=== PATIENT | female | born 1965 | race Caucasian/White ===

== ENCOUNTER 2016-12-22 04:38 | Emergency (ER) | payer BC ==
[~2016-12-22] VITALS: Ht 167.6 cm; Wt 77.1 kg
[2016-12-22 04:47] VITALS: BP 174/92
[2016-12-22] MEDS ORDERED: HYDR-2758 PO (05:05)
--- NOTE | 2016-12-22 05:07 | PHYS DOC ---
Past Medical History Past Medical History: Depression, Hypertension Additional Past Medical Histor: ADHD Past Surgical History: Hysterectomy, Tonsillectomy Additional Past Surgical Histo: ANKLE REDUCTIN Alcohol Use: Occasionally Drug Use: None Adult General Chief Complaint Chief Complaint: ANKLE PROBLEM HPI HPI 51-year-old female who injured her left ankle about 2 hours prior to arrival. She has swelling of the ankle joint with pain that is mild intermittent worse with walking and without alleviating factors. Review of systems is negative for knee pain or hip pain. Negative for chest pain shortness of breath. All other review of systems is negative unless otherwise noted in history of present illness. ED course: 51-year-old female presenting with left ankle pain after injuring her left ankle. X-rays obtained which showed no obvious fracture or dislocation. Significant soft tissue swelling present. Neurovascularly intact. 2 second cap refill with normal sensation in the foot. Ankle is wrapped in the emergency room and crutches provided to follow-up with her doctor next 2-3 days for repeat ankle examination. Review of Systems Review of Systems SEE ABOVE. Allergies Allergies Allergies Coded Allergies Type Severity Reaction Last Updated Verified ciprofloxacin Allergy Intermediate 12/22/16 Yes Physical Exam Physical Exam SEE ABOVE Constitutional: Well developed, well nourished, no acute distress, non-toxic appearance. [] HENT: Normocephalic, atraumatic, bilateral external ears normal, oropharynx moist, no oral exudates, nose normal. [] Eyes: PERRLA, EOMI, conjunctiva normal, no discharge. [] Neck: Normal range of motion, no tenderness, supple, no stridor. [] Cardiovascular:Heart rate regular rhythm, no murmur [] Lungs & Thorax: Bilateral breath sounds clear to auscultation [] Abdomen: Bowel sounds normal, soft, no tenderness, no masses, no pulsatile masses. [] Skin: Warm, dry, no erythema, no rash. [] Back: No tenderness, no CVA tenderness. [] Extremities: Soft tissue swelling the left lateral malleolus with tenderness palpation. No abrasions ecchymosis or laceration. Neurovascularly intact. Neurologic: Alert and oriented X 3, normal motor function, normal sensory function, no focal deficits noted. [] Psychologic: Affect normal, judgement normal, mood normal. [] Current Patient Data Vital Signs Vital Signs Date Time Temp Pulse Resp B/P (MAP) Pulse Ox O2 Delivery O2 Flow Rate FiO2 12/22/16 04:47 98.2 93 16 174/92 (119) 95 Room Air 98.2 EKG EKG [] Radiology/Procedures Radiology/Procedures [] Course & Med Decision Making Course & Med Decision Making Pertinent Labs and Imaging studies reviewed. (See chart for details) [] Dragon Disclaimer Dragon Disclaimer This electronic medical record was generated, in whole or in part, using a voice recognition dictation system. Departure Departure Impression: Primary Impression: Ankle sprain Disposition: HOME, SELF-CARE Condition: STABLE Referrals: JOSEFINA WILSON MD (PCP) Patient Instructions: Ankle Sprain Additional Instructions: Thank you for allowing us to participate in your care today. Followup with your primary care physician in 3 days if your symptoms do not improve. Call your Primary Doctor tomorrow and inform them of your visit today. If you do not have a primary care provider you can ask for a list of our primary care providers. Return to the emergency department you have any new or concerning findings. This should be evaluated by the primary care physician and any necessary consulting services for continued management within a few days after discharge. Return to emergency room if you have any new or concerning symptoms including but not limited to fever, chills, nausea, vomiting, intractable pain, any new rashes, chest pain, shortness of air, uncontrolled bleeding, difficulty breathing, and/or vision loss. You may have been prescribed medication that can change in your level of thinking and ability to operate machinery. These medications include hydrocodone and Ativan. Also, Benadryl has been known to do this as well. Be sure to check with your pharmacist and ask if the medications you've prescribed can affect your level of consciousness. I recommend not operating heavy machinery or driving while on medication such as these. Scripts Hydrocodone Bit/Acetaminophen (HYDROCODONE-APAP 5-325 ) 1 Each Tablet 1 TAB PO PRN Q6HRS Y for PAIN, #15 TAB 0 Refills Be careful as this medication may cause you to be drowsy or tired. Do not drive on this medication. Prov: RENE ORDONEZ MD 12/22/16 RENE ORDONEZ MD Dec 22, 2016 05:07
--- NOTE | 2016-12-22 07:14 | RAD ---
Left ankle, 3 views, 12/22/2016: History: Ankle pain No fracture or dislocation is identified. There is moderate soft tissue swelling over the lateral malleolus. IMPRESSION: No acute bony abnormality is detected.
== END 2016-12-22 05:41 | disposition home or self-care (01) ==
LOC: ER 04:38
DX: S93.402A Sprain of unspecified ligament of left ankle, initial encounter (principal); F32.9 Major depressive disorder, single episode, unspecified; I10 Essential (primary) hypertension; F90.9 Attention-deficit hyperactivity disorder, unspecified type; Z88.1 Allergy status to other antibiotic agents; X58.XXXA Exposure to other specified factors, initial encounter; Y93.89 Activity, other specified; Y92.89 Other specified places as the place of occurrence of the external cause; Y99.8 Other external cause status
CPT/HCPCS: 73610; 99284

== ENCOUNTER → 2016-12-29 | Outpatient (CLI) | payer BC ==
[2016-12-22 04:47] VITALS: BP 174/92
[~2016-12-29] MED LIST: HYDR-2758 PO
--- NOTE | 2016-12-29 13:49 | KCIC ---
Examination: 3 views of the left ankle HISTORY: History of left ankle pain and bruising, injury COMPARISON: 12/22/2016 FINDINGS: The ankle mortise appears intact. Questionable avulsion fracture distal lateral malleolus unchanged. Interval decrease in soft tissue swelling lateral to lateral malleolus. IMPRESSION: Interval decrease in soft tissue swelling lateral to lateral malleolus. Questionable avulsion fracture distal lateral malleolus unchanged. Electronically signed by: Wang Enriquez MD (12/29/2016 1:46 PM) [id number]
== END | disposition home or self-care (01) ==
LOC: KCIC 11:26
PROVIDERS: ATTEND Family Medicine
DX: S99.912D Unspecified injury of left ankle, subsequent encounter (principal); X58.XXXD Exposure to other specified factors, subsequent encounter
CPT/HCPCS: 73610

== ENCOUNTER 2018-04-22 17:31 | Emergency (ER) | payer SELFPAY ==
[~2018-04-22] VITALS: Ht 170.2 cm; Wt 90.5 kg
[~2018-04-22 17:31] MED LIST changes: -HYDR-2758 PO; +HYDR-2761 PO
[2018-04-22 17:58] LABS: BASO % 1 % (0-3); EOS # 0.2 x10^3/uL (0.0-0.7); EOS % 3 % (0-3); HEMOGLOBIN 14.5 g/dL (12.0-15.5); LYMPH # 1.7 x10^3/uL (1.0-4.8); LYMPH % 19 % (24-48); MEAN CORPUSCULAR HEMOGLOBIN 32 pg (25-35); MEAN CORPUSCULAR HGB CONC 34 g/dL (31-37); MEAN CORPUSCULAR VOLUME 93 fL (79-100); MONO # 0.5 x10^3/uL (0.0-1.1); MONO % 6 % (0-9); NEUT # 6.5 x10^3uL (1.8-7.7); NEUT % 72 % (31-73); PLATELET COUNT 314 x10^3/uL (140-400); RED BLOOD COUNT 4.61 x10^6/uL (3.50-5.40); RED CELL DISTRIBUTION WIDTH 13.3 % (11.5-14.5); WHITE BLOOD COUNT 9.1 x10^3/uL (4.0-11.0)
[2018-04-22] MEDS ORDERED: hydrALAZINE 20 MG/ML VIAL. IVP ONE (18:00)
[2018-04-22 18:09] LABS: PROTHROMBIN TIME PATIENT 11.7 SEC (11.7-14.0)
[2018-04-22 18:12] LABS: CALCIUM 9.6 mg/dL (8.5-10.1); CREATININE 0.9 mg/dL (0.6-1.0); POTASSIUM 3.3 mmol/L (3.5-5.1)
[2018-04-22 18:23] LABS: ALBUMIN 3.9 g/dL (3.4-5.0); TOTAL BILIRUBIN 0.4 mg/dL (0.2-1.0); TOTAL PROTEIN 7.7 g/dL (6.4-8.2)
--- NOTE | 2018-04-22 18:28 | RAD ---
CT HEAD WO CONTRAST History: SEVERE HEADACHE Comparison: None. Technique: Noncontrast CT imaging was performed of the head. Exposure: One or more of the following individualized dose reduction techniques were utilized for this examination: 1. Automated exposure control 2. Adjustment of the mA and/or kV according to patient size 3. Use of iterative reconstruction technique. Findings: No acute extra-axial or parenchymal hemorrhage is identified. There is no significant intra-axial mass effect, midline shift, or extra-axial fluid collection. The mcfarland-white differentiation of the major vascular territories is preserved. The ventricles, sulci, and cisterns are within normal limits in size and configuration. Mastoid air cells are aerated. There is an air-fluid level in the visualized right maxillary sinus. No acute calvarial abnormality is identified. There are a couple of small foci of lower density of the anterior left basal ganglia inferiorly. Impression: 1. There is no evidence of acute intracranial hemorrhage. There are couple of small foci of lower density of the anterior left basal ganglia, probably due to sequela of at least subacute if not chronic lacunar infarcts. 2. There is an air-fluid level in the right maxillary sinus which may be seen with acute sinusitis. Electronically signed by: Watson Briscoe MD (04/22/2018 6:23 PM) [facility]
[2018-04-22] MEDS ORDERED: POTASSIUM CHLORIDE 20 MEQ TABLET.ER. PO ONE (19:00)
[2018-04-22] MEDS ORDERED: cloNIDine HCL 0.1 MG TABLET PO ONE (19:00)
[2018-04-22] MEDS ORDERED: CAND32TA19 PO (19:26)
[2018-04-22] MEDS ORDERED: CLON0.1T PO (19:26)
[2018-04-22] MEDS ORDERED: POTA20TA82 PO (19:26)
--- NOTE | 2018-04-22 19:26 | PHYS DOC ---
Past Medical History Past Medical History: Depression, Hypertension Additional Past Medical Histor: ADHD Past Surgical History: Hysterectomy, Tonsillectomy Additional Past Surgical Histo: ANKLE REDUCTIN Alcohol Use: Occasionally Drug Use: None Adult General Chief Complaint Chief Complaint: HEADACHE HPI HPI Patient is a 53 year old female who presents to the emergency department with complaints of a severe headache in her left posterior scalp and throbbing behind her left eye. Patient states symptoms started at approximately or tingling 30 this afternoon. She describes the pain as constant pressure currently she rates the pain an 8 out of 10 on the pain scale, there are no alleviating or aggravating factors. Patient denies any numbness, tingling, weakness, vision changes, dizziness, neck pain, fever, difficulty speaking, slurred speech, or incoordination. She states that she has been out of her blood pressure medications, Atacand 32 mg daily and clonidine 0.1 mg BID, for the last 2 days. Patient states that she took 5 mg of oxycodone was left over from a prior surgery at approximately 1615 with no relief of her symptoms. Review of Systems Review of Systems Constitutional: Denies fever or chills [] Eyes: Denies change in visual acuity, or redness; see HPI HENT: Denies nasal congestion or sore throat [] Respiratory: Denies cough or shortness of breath [] Cardiovascular: No additional information not addressed in HPI [] GI: Denies abdominal pain, nausea, or vomiting Musculoskeletal: Denies back pain or joint pain [] Integument: Denies rash or skin lesions [] Neurologic: Denies focal weakness or sensory changes; see HPI Current Medications Current Medications Current Medications Medications (Trade) Dose Ordered Sig/Muna Start Time Stop Time Status Last Admin Dose Admin Clonidine HCl (Catapres) 0.1 mg 1X ONCE 04/22/18 19:00 04/22/18 19:01 DC 04/22/18 19:19 0.1 MG Hydralazine HCl (Apresoline Inj) 10 mg 1X ONCE 04/22/18 18:00 04/22/18 18:01 DC 04/22/18 18:21 10 MG Potassium Chloride (Klor-Con) 40 meq 1X ONCE 04/22/18 19:00 04/22/18 19:02 DC 04/22/18 19:20 40 MEQ Allergies Allergies Allergies Coded Allergies Type Severity Reaction Last Updated Verified ciprofloxacin Allergy Intermediate 12/22/16 Yes Physical Exam Physical Exam Constitutional: Well developed, well nourished, moderate distress, non-toxic appearance. [] HENT: Normocephalic, atraumatic, bilateral external ears normal, oropharynx moist, no oral exudates, nose normal. [] Eyes: PERRLA, EOMI, conjunctiva normal, no discharge. [] Neck: Normal range of motion, no tenderness, supple, no stridor. [] Cardiovascular:Heart rate regular rhythm, no murmur [] Lungs & Thorax: Bilateral breath sounds clear to auscultation [] Skin: Warm, dry, no erythema, no rash. [] Extremities: No tenderness, no cyanosis, no clubbing, ROM intact, no edema. [] Neurologic: Alert and oriented X 3, normal motor function, normal sensory function, no focal deficits noted, NIH scale 0[] Psychologic: Affect normal, judgement normal, mood normal. [] Current Patient Data Vital Signs Vital Signs Date Time Temp Pulse Resp B/P (MAP) Pulse Ox O2 Delivery O2 Flow Rate FiO2 04/22/18 19:30 90 20 98 04/22/18 19:19 167/83 04/22/18 17:49 97.7 Room Air 97.7 Lab Values Laboratory Tests Test 04/22/18 17:50 White Blood Count 9.1 x10^3/uL (4.0-11.0) Red Blood Count 4.61 x10^6/uL (3.50-5.40) Hemoglobin 14.5 g/dL (12.0-15.5) Hematocrit 43.0 % (36.0-47.0) Mean Corpuscular Volume 93 fL (79-100) Mean Corpuscular Hemoglobin 32 pg (25-35) Mean Corpuscular Hemoglobin Concent 34 g/dL (31-37) Red Cell Distribution Width 13.3 % (11.5-14.5) Platelet Count 314 x10^3/uL (140-400) Neutrophils (%) (Auto) 72 % (31-73) Lymphocytes (%) (Auto) 19 % (24-48) L Monocytes (%) (Auto) 6 % (0-9) Eosinophils (%) (Auto) 3 % (0-3) Basophils (%) (Auto) 1 % (0-3) Neutrophils # (Auto) 6.5 x10^3uL (1.8-7.7) Lymphocytes # (Auto) 1.7 x10^3/uL (1.0-4.8) Monocytes # (Auto) 0.5 x10^3/uL (0.0-1.1) Eosinophils # (Auto) 0.2 x10^3/uL (0.0-0.7) Basophils # (Auto) 0.0 x10^3/uL (0.0-0.2) Prothrombin Time 11.7 SEC (11.7-14.0) Prothrombin Time INR 0.9 (0.8-1.1) Sodium Level 139 mmol/L (136-145) Potassium Level 3.3 mmol/L (3.5-5.1) L Chloride Level 98 mmol/L (98-107) Carbon Dioxide Level 31 mmol/L (21-32) Anion Gap 10 (6-14) Blood Urea Nitrogen 13 mg/dL (7-20) Creatinine 0.9 mg/dL (0.6-1.0) Estimated GFR (Cockcroft-Gault) 66.0 BUN/Creatinine Ratio 14 (6-20) Glucose Level 152 mg/dL (70-99) H Calcium Level 9.6 mg/dL (8.5-10.1) Total Bilirubin 0.4 mg/dL (0.2-1.0) Aspartate Amino Transferase (AST) 25 U/L (15-37) Alanine Aminotransferase (ALT) 20 U/L (14-59) Alkaline Phosphatase 120 U/L (46-116) H Total Protein 7.7 g/dL (6.4-8.2) Albumin 3.9 g/dL (3.4-5.0) Albumin/Globulin Ratio 1.0 (1.0-1.7) Laboratory Tests 04/22/18 17:50 Laboratory Tests 04/22/18 17:50 EKG EKG 1807 SR no STEMI read by Dr. Mcwilliams at 1810 [] Radiology/Procedures Radiology/Procedures PROCEDURE: CT HEAD WO CONTRAST CT HEAD WO CONTRAST History: SEVERE HEADACHE Comparison: None. Technique: Noncontrast CT imaging was performed of the head. Exposure: One or more of the following individualized dose reduction techniques were utilized for this examination: 1. Automated exposure control 2. Adjustment of the mA and/or kV according to patient size 3. Use of iterative reconstruction technique. Findings: No acute extra-axial or parenchymal hemorrhage is identified. There is no significant intra-axial mass effect, midline shift, or extra-axial fluid collection. The mcfarland-white differentiation of the major vascular territories is preserved. The ventricles, sulci, and cisterns are within normal limits in size and configuration. Mastoid air cells are aerated. There is an air-fluid level in the visualized right maxillary sinus. No acute calvarial abnormality is identified. There are a couple of small foci of lower density of the anterior left basal ganglia inferiorly. Impression: 1. There is no evidence of acute intracranial hemorrhage. There are couple of small foci of lower density of the anterior left basal ganglia, probably due to sequela of at least subacute if not chronic lacunar infarcts. 2. There is an air-fluid level in the right maxillary sinus which may be seen with acute sinusitis. [] Course & Med Decision Making Course & Med Decision Making Pertinent Labs and Imaging studies reviewed. (See chart for details) Dx: Headache, hypertension, hypokalemia, medication refill NIH stroke scale score was 0, CT head was negative for acute findings, Pt was given 10 mg of hydralizine IV in the ER, BP decreased to 164/86 and pain decreased to a 7/10. A dose of clonidine 0.1 mg was ordered prior to discharge. 1851- Spoke with Dr. Franklin advised of patient in the ER, he agrees to admit patient for headache and HTN. 1857- Spoke with Dr. Franklin about patient's wish to not be admitted and to go home with prescriptions for atacand and clonidine. Per Dr. Franklin I will prescribe a 7 day supply of clonidine and atacand and instruct patient to call the office in the morning to schedule a follow up appointment. [] Dragon Disclaimer Dragon Disclaimer This electronic medical record was generated, in whole or in part, using a voice recognition dictation system. Departure Departure Impression: Primary Impression: Headache Additional Impressions: Hypertension Medication refill Hypokalemia Disposition: HOME, SELF-CARE Condition: STABLE Referrals: MONTANA FRANKLIN MD (PCP) Patient Instructions: Headache, FAQs, Hypertension, Hypokalemia Additional Instructions: Fill the prescriptions and use them as directed. Call Dr. Franklin's office in the morning and schedule a follow-up appointment this week. Return to the ER if her symptoms worsen. Scripts Potassium Chloride (POTASSIUM CHLORIDE) 20 Meq Tablet.er 20 MEQ PO DAILY for 5 Days, #5 TAB.SR 0 Refills Prov: LINDA HILTON APRN 04/22/18 Clonidine Hcl (CLONIDINE HCL) 0.1 Mg Tablet 0.1 MG PO BID for 7 Days, #14 TAB 0 Refills Prov: LINDA HILTON APRN 04/22/18 Candesartan Cilexetil (ATACAND) 32 Mg Tablet 1 TAB PO DAILY for 7 Days, #7 TAB 0 Refills Prov: LINDA HILTON APRN 04/22/18 NIHSS Stroke Scale NIH Stroke Scale: NIH Stroke Scale Response (Comments) Value Level of Consciousness: 0 Alert/Responsive 0 LOC Questions: 0 Answers both correctly 0 LOC Commands: 0 Performs both tasks 0 Best Gaze: 0 Normal 0 Visual: 0 No visual loss 0 Facial Palsy: 0 Normal, symmetrical 0 Motor - Left Arm 0 No drift 0 Motor - Right Arm 0 No drift 0 Motor - Left Leg 0 No drift 0 Motor: Right Leg 0 No drift 0 Limb Ataxia: 0 Absent 0 Sensory: 0 No loss 0 Best Language: 0 Normal 0 Dysathria: 0 Normal 0 Extinction and Inattention: 0 Normal 0 Total 0 Problem Qualifiers Primary Impression: Headache Headache type: unspecified Headache chronicity pattern: acute headache Intractability: not intractable Qualified Codes: R51 - Headache Additional Impressions: Hypertension Hypertension type: essential hypertension Qualified Codes: I10 - Essential ( primary) hypertension LINDA HILTON APRN Apr 22, 2018 19:26
[2018-04-22 19:30] VITALS: BP 178/101
--- NOTE | 2018-04-23 12:51 | EKG ---
[facility] [address] [place] [address] Test Date: 2018-04-22 Test Time: 18:07:31 Pat Name: DAVID MARKS Department: Room: Gender: F Engineering Technologist: : 1965 Requested By: LINDA HILTON Order Number: [id number] Reading MD: Donnell Rhoades MD Measurements Intervals [place] Rate: 77 P: -90 AR: 150 QRS: 18 QRSD: 90 T: 46 QT: 426 QTc: 484 Interpretive Statements SINUS RHYTHM Electronically Signed On 04-25-2018 13:50:03 COLD PRESS OPERATOR by Donnell Rhoades MD
== END 2018-04-22 19:40 | disposition home or self-care (01) ==
LOC: ER 17:31
DX: E87.6 Hypokalemia (principal); I10 Essential (primary) hypertension; R51 Headache; R20.2 Paresthesia of skin; Z76.0 Encounter for issue of repeat prescription; F32.9 Major depressive disorder, single episode, unspecified; Z90.710 Acquired absence of both cervix and uterus; Z90.89 Acquired absence of other organs; Z88.1 Allergy status to other antibiotic agents
CPT/HCPCS: 36415; 70450; 80053; 85025; 85610; 93005; 96374; 99284; J0360

== ENCOUNTER 2020-05-11 13:32 | Emergency (ER) | payer SELFPAY ==
[~2020-05-11] VITALS: Ht 167.6 cm; Wt 86.4 kg
[~2020-05-11 13:32] MED LIST changes: +CAND32TA19 PO; +CLON0.1T PO; +POTA20TA4 PO
[2020-05-11] MEDS ORDERED: OXYMETAZOLINE 0.05% NASAL SPRAY 30ML BOTTLE. NS ONE ×2 (13:34→14:00)
[2020-05-11] MEDS ORDERED: COCAINE 4% TOPICAL SOLUTION. TP ONE ×3 (13:51→14:00)
[2020-05-11] MEDS ORDERED: LIDOCAINE 2%/EPI 1:100,000 20 ML VIAL. ONE (13:51)
[2020-05-11] MEDS ORDERED: LIDOCAINE 2%/EPI 1:100,000 20 ML VIAL. SQ ONE (14:00)
[2020-05-11] MEDS ORDERED: IV NORMAL SALINE 1000ML BAG 1,000 ML IV ONE (14:00)
[2020-05-11] MEDS ORDERED: SILVER NITRATE STICK TP ONE ×2 (14:01→14:15)
[2020-05-11 14:16] LABS: BASO % 1 % (0-3); EOS # 0.1 x10^3/uL (0.0-0.7); EOS % 1 % (0-3); HEMATOCRIT 39.3 % (36.0-47.0); HEMOGLOBIN 13.4 g/dL (12.0-15.5); LYMPH # 1.7 x10^3/uL (1.0-4.8); LYMPH % 18 % (24-48); MEAN CORPUSCULAR HEMOGLOBIN 32 pg (25-35); MEAN CORPUSCULAR HGB CONC 34 g/dL (31-37); MEAN CORPUSCULAR VOLUME 93 fL (79-100); MONO # 0.7 x10^3/uL (0.0-1.1); MONO % 7 % (0-9); NEUT # 7.1 x10^3/uL (1.8-7.7); NEUT % 74 % (31-73); PLATELET COUNT 285 x10^3/uL (140-400); RED BLOOD COUNT 4.24 x10^6/uL (3.50-5.40); RED CELL DISTRIBUTION WIDTH 13.3 % (11.5-14.5); WHITE BLOOD COUNT 9.6 x10^3/uL (4.0-11.0)
[2020-05-11 14:23] LABS: CALCIUM 8.6 mg/dL (8.5-10.1); POTASSIUM 3.4 mmol/L (3.5-5.1)
[2020-05-11 14:30] LABS: ALBUMIN 3.6 g/dL (3.4-5.0); ALBUMIN/GLOBULIN RATIO 1.3 (1.0-1.7); TOTAL BILIRUBIN 0.3 mg/dL (0.2-1.0); TOTAL PROTEIN 6.4 g/dL (6.4-8.2)
--- NOTE | 2020-05-11 15:21 | PHYS DOC ---
Past Medical History Past Medical History: Depression, Hypertension Additional Past Medical Histor: ADHD Past Surgical History: Hysterectomy, Tonsillectomy Additional Past Surgical Histo: ANKLE REDUCTIN Smoking Status: Never Smoker Alcohol Use: Occasionally Drug Use: None General Adult EDM: Chief Complaint: NOSEBLEED HPI: HPI: Patient is a 55 year old female who was brought here by EMS from home due to nosebleeding. Patient says she was sitting in her living room reading a book when suddenly SHE noted blood come out of her left nare. This happened 20 minutes ago. Patient tried to stop the bleeding by pinching her nose but it did not stop. Patient denies any headache, no chest pain, no abdominal pain, no trouble breathing. Patient is not on any blood thinner. Patient denies any injury to her nose. Patient denies any previous nose bleeding before. Review of Systems: Review of Systems: Constitutional: Denies fever or chills. [] Eyes: Denies change in visual acuity. [] HENT: Positive for bleeding from her left nare. Respiratory: Denies cough or shortness of breath. [] Cardiovascular: Denies chest pain or edema. [] GI: Denies abdominal pain, nausea, vomiting, bloody stools or diarrhea. [] : Denies dysuria. [] Musculoskeletal: Denies back pain or joint pain. [] Integument: Denies rash. [] Neurologic: Denies headache, focal weakness or sensory changes. [] Endocrine: Denies polyuria or polydipsia. [] Lymphatic: Denies swollen glands. [] Psychiatric: Denies depression or anxiety. [] Heart Score: Risk Factors: Risk Factors: DM, Current or recent (<one month) smoker, HTN, HLP, family history of CAD, obesity. Risk Scores: Score 0 - 3: 2.5% MACE over next 6 weeks - Discharge Home Score 4 - 6: 20.3% MACE over next 6 weeks - Admit for Clinical Observation Score 7 - 10: 72.7% MACE over next 6 weeks - Early Invasive Strategies Current Medications: Current Medications Medications (Trade) Dose Ordered Sig/Muna Start Time Stop Time Status Last Admin Dose Admin Cocaine HCl (Cocaine 4% Topical) 4 ml 1X ONCE 05/11/20 14:00 05/11/20 14:01 DC Lidocaine/ Epinephrine (LIDOCAINE 2%-EPI 1:100,000 multi-dose) 20 ml 1X ONCE 3/2/21 14:00 05/11/20 14:01 DC 05/11/20 14:00 20 ML Oxymetazoline HCl (Afrin) 2 spray 1X ONCE 05/11/20 14:00 05/11/20 14:01 DC 05/11/20 14:00 2 SPRAY Silver Nitrate/ Potassium Nitrate 2 each 1X ONCE 05/11/20 14:15 05/11/20 14:16 DC 05/11/20 14:07 2 EACH Sodium Chloride 1,000 ml @ 1,000 mls/hr 1X ONCE 05/11/20 14:00 05/11/20 14:59 DC 05/11/20 14:02 1,000 MLS/HR Allergies: Allergies: Allergies Coded Allergies Type Severity Reaction Last Updated Verified ciprofloxacin Allergy Intermediate 12/22/16 Yes Physical Exam: PE: Constitutional: Well developed, well nourished, mild acute distress due to nosebleeding, non-toxic appearance. [] HENT: Normocephalic, atraumatic, bilateral external ears normal, oropharynx moist, no oral exudates, active bleeding from the left nare profusely, bleeding dripped into right nare, and back of her throat. Eyes: PERRLA, EOMI, conjunctiva normal, no discharge. [] Neck: Normal range of motion, no tenderness, supple, no stridor. [] Cardiovascular:Heart rate regular rhythm, no murmur [] Lungs & Thorax: Bilateral breath sounds clear to auscultation [] Abdomen: Bowel sounds normal, soft, no tenderness, no masses, no pulsatile masses. [] Skin: Warm, dry, no erythema, no rash. [] Back: No tenderness, no CVA tenderness. [] Extremities: No tenderness, no cyanosis, no clubbing, ROM intact, no edema. [] Neurologic: Alert and oriented X 3, normal motor function, normal sensory function, no focal deficits noted. [] Psychologic: Affect normal, judgement normal, mood normal. [] Current Patient Data: Labs: Laboratory Tests Test 05/11/20 13:50 White Blood Count 9.6 x10^3/uL (4.0-11.0) Red Blood Count 4.24 x10^6/uL (3.50-5.40) Hemoglobin 13.4 g/dL (12.0-15.5) Hematocrit 39.3 % (36.0-47.0) Mean Corpuscular Volume 93 fL (79-100) Mean Corpuscular Hemoglobin 32 pg (25-35) Mean Corpuscular Hemoglobin Concent 34 g/dL (31-37) Red Cell Distribution Width 13.3 % (11.5-14.5) Platelet Count 285 x10^3/uL (140-400) Neutrophils (%) (Auto) 74 % (31-73) H Lymphocytes (%) (Auto) 18 % (24-48) L Monocytes (%) (Auto) 7 % (0-9) Eosinophils (%) (Auto) 1 % (0-3) Basophils (%) (Auto) 1 % (0-3) Neutrophils # (Auto) 7.1 x10^3/uL (1.8-7.7) Lymphocytes # (Auto) 1.7 x10^3/uL (1.0-4.8) Monocytes # (Auto) 0.7 x10^3/uL (0.0-1.1) Eosinophils # (Auto) 0.1 x10^3/uL (0.0-0.7) Basophils # (Auto) 0.0 x10^3/uL (0.0-0.2) Sodium Level 141 mmol/L (136-145) Potassium Level 3.4 mmol/L (3.5-5.1) L Chloride Level 100 mmol/L (98-107) Carbon Dioxide Level 27 mmol/L (21-32) Anion Gap 14 (6-14) Blood Urea Nitrogen 11 mg/dL (7-20) Creatinine 1.0 mg/dL (0.6-1.0) Estimated GFR (Cockcroft-Gault) 58.0 BUN/Creatinine Ratio 11 (6-20) Glucose Level 117 mg/dL (70-99) H Calcium Level 8.6 mg/dL (8.5-10.1) Total Bilirubin 0.3 mg/dL (0.2-1.0) Aspartate Amino Transferase (AST) 27 U/L (15-37) Alanine Aminotransferase (ALT) 31 U/L (14-59) Alkaline Phosphatase 109 U/L (46-116) Total Protein 6.4 g/dL (6.4-8.2) Albumin 3.6 g/dL (3.4-5.0) Albumin/Globulin Ratio 1.3 (1.0-1.7) Laboratory Tests 05/11/20 13:50 Laboratory Tests 05/11/20 13:50 Vital Signs: Vital Signs Date Time Temp Pulse Resp B/P (MAP) Pulse Ox O2 Delivery O2 Flow Rate FiO2 05/11/20 14:25 94 24 94 05/11/20 13:34 97.4 186/94 (124) Room Air 97.4 EKG: EKG: [] Radiology/Procedures: Radiology/Procedures: Indication: Epistaxis Procedure: The patient was positioned appropriately and the nares were cleared as well as possible. The bleeding site was not visible, but patient was bleeding profusedly. Nasal afrin solution was sprayed into nare, topical cocaine was applied. Hemostasis was obtained by inserting rhino Rocket into left nare. The patient tolerated the procedure well. Complications:NONE. Course & Med Decision Making: Course & Med Decision Making Pertinent Labs and Imaging studies reviewed. (See chart for details) Patient is scheduled to see the ENT doctor on Sunday at 8 AM. Patient will has the nasal packing in place until she is seen by the ENT doctor. Will put on antibiotic to prevent infection Dragon Disclaimer: Dragon Disclaimer: This electronic medical record was generated, in whole or in part, using a voice recognition dictation system. Departure Departure Impression: Primary Impression: Epistaxis Disposition: 01 DC HOME SELF CARE/HOMELESS Condition: IMPROVED Referrals: CHRISTO FRANKLIN MD Please call this ENT doctor for follow up this week for outpatient treatment Patient Instructions: Nosebleed Additional Instructions: Thank you for visiting our Emergency Department. We appreciate you trusting us with your care. If any additional problems come up don't hesitate to return to visit us. Please follow up with your primary care provider so they can plan additional care if needed and know about the problem that you had. If symptoms worsen come back to the Emergency Department. Any concerning symptoms that start such as chest pain, shortness of air, weakness or numbness on one side of the body, running high fevers or any other concerning symptoms return to the ER. Scripts Amoxicillin/Potassium Clav (AUGMENTIN 875-125 TABLET) 1 Each Tablet 1 TAB PO BID for 7 Days, #14 TAB 0 Refills Prov: JESUSITA OH DO 05/11/20 JESUSITA OH DO May 11, 2020 15:21
[2020-05-11] MEDS ORDERED: AMOX1TAB61 PO (16:01)
[2020-05-11 16:24] VITALS: BP 140/94
== END 2020-05-11 16:30 | disposition home or self-care (01) ==
LOC: ER 13:32
DX: R04.0 Epistaxis (principal); F32.9 Major depressive disorder, single episode, unspecified; I10 Essential (primary) hypertension; Z90.710 Acquired absence of both cervix and uterus; Z98.890 Other specified postprocedural states; Z90.89 Acquired absence of other organs; Z88.1 Allergy status to other antibiotic agents
CPT/HCPCS: 30901; 36415; 80053; 85025; 96360; 99285; J3490; J7030